=== PATIENT | male | born 1945 | race Hispanic/Latino ===

== ENCOUNTER 2020-06-10 04:51 | Emergency (ER) | payer MEDICARE ==
[2020-06-10] MEDS ORDERED: NORepinephrine/NS 4 MG-250 ML 4 MG/250 ML BAG IV ONE (05:05)
--- NOTE | 2020-06-10 05:32 | Emergency Department Report ---
ED CPR HPI - General Chief Complaint: Cardiac Arrest/CPR Stated Complaint: CARDIAC Time Seen by Provider: 06/10/20 05:21 Source: EMS Mode of arrival: Stretcher Limitations: Other - History of Present Illness Initial Comments: Patient is a 75-year-old male that presents emergency room with cardiac arrest. Patient brought in by EMS. EMS report received. EMS states the patient was found down for an unknown amount of time. Patient's last known well time is unknown. It is an unwitnessed arrest. Patient ventilated with a BVM and a oropharyngeal airway. Patient had CPR done by a Evelio machine. Patient had 2 rounds of epi and was shocked 3 times. Patient has a past medical history of COPD and diabetes. MD Complaint: found unresponsive -: unknown Place: home Bystander CPR Performed: No AED Applied by Bystander/Conditioner Tumbler: Yes Shock Advised: Yes Number of Shocks Delivered: 3 Initial Findings in the Field: unresponsive, no respirations, no pulse, VTACH/VFIB ROSC in the Field: No Associated Injuries: No Treatments Prior to Arrival: other airway device, chest compressions, epinephrine mgs # - Related Data Previous Rx's Medication Instructions Recorded Last Taken Type ALPRAZolam [Xanax TAB] 1 mg PO BID #14 tab 07/25/16 Unknown Rx Hydrocodone/Chlorphen Polis(Nf 473 ml PO BID #120 susp 07/25/16 Unknown Rx [Tussionex (Nf)] Allergies Allergy/AdvReac Type Severity Reaction Status Date / Time No Known Allergies Allergy Unverified 07/25/16 13:01 ED Review of Systems ROS: Stated complaint: CARDIAC Other details as noted in HPI Comment: Unobtainable due to pts medical conditions ED Past Medical Hx - Past Medical History Previous Medical History?: Yes Hx Diabetes: Yes Hx COPD: Yes Additional medical history: Hernias,Enlarged Heart - Surgical History Past Surgical History?: Yes Additional Surgical History: hernias - Family History Family history: no significant - Social History Smoking Status: Current Every Day Smoker Substance Use Type: Alcohol - Medications Home Medications: Home Medications Medication Instructions Recorded Confirmed Last Taken Type ALPRAZolam [Xanax TAB] 1 mg PO BID #14 tab 07/25/16 Unknown Rx Hydrocodone/Chlorphen Polis(Nf 473 ml PO BID #120 susp 07/25/16 Unknown Rx [Tussionex (Nf)] ED Physical Exam - General Limitations: Altered Mental Status, Physical Limitation, Other General appearance: obtunded - Head Head exam: Present: atraumatic, normocephalic - Eye Eye exam: Present: other (Nipples fixed and dilated.) - ENT ENT exam: Present: mucous membranes dry - Neck Neck exam: Present: normal inspection - Respiratory Respiratory exam: Present: normal lung sounds bilaterally - Cardiovascular Cardiovascular Exam: Present: other (No pulse) - GI/Abdominal GI/Abdominal exam: Present: soft, distended - Rectal Rectal exam: Present: deferred - Extremities Exam Extremities exam: Present: normal inspection, other (Left tibial IO noted but is nonfunctional and a right tibial IO placed.) - Neurological Exam Neurological exam: Present: altered - Skin Skin exam: Present: warm, dry, intact. Absent: rash ED Course - Reevaluation(s) Reevaluation #1: Patient arrived via EMS. Report received from EMS. Patient shocked the patient 2 times and gave two rounds of epi. Patient being bagged with BVM. Patient intubated immediately. Patient has a Evelio machine for compressions. 06/10/20 004:50 Patient was shocked 3 times. Patient was given multiple medication. Patient had spontaneous return of circulation. Patient was placed on a Levophed drip. 06/10/20 05:03 Reevaluation #2: Patient went into cardiac arrest again. Compressions were started. Patient given medications. 06/10/20 05:08 Patient had spontaneous return of circulation. Patient is already on a Levophed drip and a dopamine drip will be started. 06/10/20 05:11 updated with information. 06/10/20 05:13 Reevaluation #3: Patient went into cardiac arrest. Patient given epi. Compressions started again. 06/10/20 05:25 Patient had spontaneous return of circulation. 06/10/20 05:26 Reevaluation #4: Patient went into cardiac arrest. Patient asystole on the monitor. Compressions were started. Epi given. 06/10/20 05:28 Resuscitation efforts were terminated due to no signs of life. No pulse noted. No cardiac motion on ultrasound. 06/10/20 05:30 Reevaluation #5: Family updated with information. Family support given. All questions addressed. 06/10/20 05:35 - Intubation Time Out Performed: Yes Sedative: none Laryngoscope: fiberoptic video scope Size: 3 Assist Device Used: fiberoptic device ET Tube Size: 7.5 Tube Secured Depth (cm): 22 Tube Secured Location: teeth Tube Placement Confirmation: visualized tube passing t, equal breath sounds bilat, no breath sounds over epi, confirmation by capnometr Patient Tolerated Procedure: well, no complications Intubation Complications: none - IO Right Tibia Consent Obtained: emergent situation Time Out Performed: Yes IO Instrument Used to Penetrate the Cortex: battery powered IO drill Patient Tolerated Procedure: well, no complications Complications: none ED Medical Decision Making - Medical Decision Making Patient is a 75-year-old male that presents emergency room with cardiac arrest. Patient brought in by EMS. EMS was unable to intubate and the patient was intubated immediately after arrival. Patient also had an IO placed by EMS in the left tibia. Patient's left tibial IO was nonfunctional. Patient had a right tibial IO placed. Meds given to that. See procedure note for intubation and IO placement. Patient went into cardiac arrest multiple times. Resuscitation efforts were finally terminated due to no signs of life. See code notes. Code ran in accordance with ACLS guidelines. - Differential Diagnosis Cardiac arrest, ND, PE Critical Care Time: Yes Critical care time in (mins) excluding proc time.: 35 Critical care attestation.: If time is entered above; I have spent that time in minutes in the direct care of this critically ill patient, excluding procedure time. Critical Care Time: 35 minutes ED Disposition Clinical Impression: Cardiac arrest Disposition: DC-20 Is pt being admited?: No Does the pt Need Aspirin: No Condition: Undetermined Time of Disposition: 05:47
[2020-06-10] MEDS ORDERED: EPINEPHrine 1 MG/1 ML 8 MG in SODIUM CHLORIDE 0.9% 250ML 242 ML IV ONE (06:00)
== END 2020-06-10 06:00 ==
LOC: ED 04:51
DX: I46.9 Cardiac arrest, cause unspecified (principal); E11.9 Type 2 diabetes mellitus without complications; J44.9 Chronic obstructive pulmonary disease, unspecified; F17.200 Nicotine dependence, unspecified, uncomplicated; Z98.890 Other specified postprocedural states; Z79.899 Other long term (current) drug therapy
CPT/HCPCS: 31500; 92950; J0171; J7050